=== PATIENT | male | born 1980 | race Caucasian/White ===

== ENCOUNTER 2017-07-12 11:45 | Observation (INO) ==
[2017-07-12] MEDS ORDERED: NS 1,000 ML IV ONE ×2 (12:12→16:01)
--- NOTE | 2017-07-12 12:17 | Emergency Department Report ---
Seizure HPI - General Chief Complaint: Seizure Stated Complaint: seizure Time Seen by Provider: 07/12/17 12:11 Source: patient, other (Employer; girlfriend) Mode of arrival: EMS Limitations: altered mental status (post ictal) - History of Present Illness HPI Narrative: Cuauhtemoc Nieves is a 37 y/o male who arrived via EMS for new onset seizure. According to the patient's girlfriend, who witnessed the event, his whole body became stiff, and he began making a sucking noise with his mouth for 2-3 minutes. When his body stiffened his arms were slightly flexed and his wrists were tightly flexed with his fingers curled up. Following this, he began to have vomiting and then started to profusely sweat. He started to snore and he was having a hard time breathing. He was having trouble clearing his secretions. She states that his face and his ears turned blue. He tried to get up to walk, but was unable to. Cuauhtemoc has a history of migraines, which have been evaluated by neurology and imaging studies, the last one about a year ago. He has a prescription for sumatriptan, which he rarely takes. Often, Excedrin Migraine will take care of his migraine. Occasionally he requires injections of Toradol 60 mg IM, which provides complete relief. Has migraines have decreased in frequency from about 1 per week to one per month. He has a history of occasional marijuana use. He drinks a max of 5 cups of coffee per day. His girlfriend states that he didn't sleep much the night before, only about 3-4 hours. He occasionally takes Zyrtec- D, and may be used taken about 4 last week. There has not been any recent illnesses, fevers or chills. He does not drink alcohol or use drugs. Girlfriend reports a brief seizure about a month ago, but no one thought he really had a seizure so he was never evaluated. MD complaint: seizure Onset (ago): minute(s) (2-3) Description of Episode: loss of consciousness Witnessed: yes - by bystander Trauma: Yes (fell face first off a horse yesterday, no LOC) Seizure History: none Place: home Possible Precipitating Event: head injury, lack of sleep, stress, medication Associated symptoms: confusion, shortness of breath, other (severe headache) Treatments prior to arrival: other (Zofran per EMS) - Related Data Home Medications Medication Instructions Recorded Confirmed No known Home medications [No home 07/12/17 07/12/17 meds] Allergies Allergy/AdvReac Type Severity Reaction Status Date / Time No Known Allergies Allergy Verified 07/12/17 12:19 Review of Systems Constitutional: Denies: fever, chills Eyes: Denies: eye pain, vision change ENT: Denies: ear pain, congestion Cardiovascular: Denies: chest pain, palpitations Respiratory: Reports: as per HPI. Denies: cough Gastrointestinal: Reports: as per HPI Genitourinary: Denies: urgency, dysuria Musculoskeletal: Denies: as per HPI Integumentary: Denies: rash, wounds Neurological: Reports: as per HPI Psychiatric: Denies: anxiety, depression Hematological/Lymphatic: Denies: easy bleeding, easy bruising Allergic/Immunologic: Reports: other (allergies) [facility] Patient Stated Medical History Migraine Yes Surgical History: Nasal surgery, ear tubes as a child Family History Updates: Negative for seizure disorder or brain abnormalities. - Social History Smoking status: Never smoker Substance use type: marijuana Substance last used: unknown Alcohol intake frequency: does not drink Current occupational status: employed Current occupation: [employer] Exam - Limitations Limitations: no limitations - General General appearance: in distress - Normal Exams: Head:: Normocephalic without trauma Eyes:: Pupils are PERRLA w/ EOMI ENMT:: No facial trauma Dental: No fractured (abrasion to the tip of his tongue with mild bleeding, which is well controlled) Neck:: Full range of motion, without adenopathy Chest/Respirations:: Clear all coker Cardiovascular:: Regular rate and rhythm (bradycardic, upper 40s to low 50s) Abdomen:: Bowel sounds positive, soft, non-tender, non-distended Lymphatic:: No lymphadenopathy Musculoskeletal:: No tenderness, or deformity noted Integumentary:: No rashes Neurological:: Patient is alert, cranial nerves (cranial nerves II through XII intact), motor/sensory/cerebellar, exams w/o gross deficits Course Course Narrative: Stat CT head without contrast was ordered. CBC, CMP, prolactin, UA, chest x-ray and urine drugs of abuse were ordered. Patient was given morphine 4 mg IV as well as 1 L of IV fluids. - Reevaluation(s) Reevaluation #1: Patient feeling better after Morphine. Resting in bed. Reevaluation #2: Pt had recurrent sz, lasting about 1 minute. He first started staring into space x 20 sec and was nonresponsive, followed by a full body seizure similar to the earlier one. His face turned cyanotic for a brief period and he was post ictal and diaphoretic. Of note, his right shoulder was stuck behind him and was difficult to reposition in front of him - may need imaging if he is unable to move it freely when he is alert. Time: 13:55 - Consultations Consultation #1: Dr. Velasquez Time: 14:10 (Admit, CCU) Consultation #2: Dr. Flores Time: 14:15 (Recommends MRI brain with and without contrast; agrees with Keppra - start 500 mg PO BID, first dose tonight. He will see Cuauhtemoc in the morning.) Vital Signs Temperature 98 F 07/12/17 11:45 Pulse Rate 56 L 07/12/17 11:45 Respiratory Rate 18 07/12/17 11:45 Blood Pressure 139/61 07/12/17 11:45 Pulse Oximetry 96 07/12/17 11:45 Temperature 98 F 07/12/17 11:45 Pulse Rate 55 L 07/12/17 12:35 Respiratory Rate 18 07/12/17 12:30 Blood Pressure 155/77 H 07/12/17 12:30 Pulse Oximetry 88 L 07/12/17 12:30 Seizure - MDM Narrative Medical decision making narrative: Between [id number] the patient had 2 seizures. IV Keppra and Ativan 0.5 mg IV were provided. He developed facial cyanosis following seizures and will require very close monitoring. - Differential Diagnosis Likely: new onset seizure - Lab Data Result diagrams: 07/12/17 12:14 07/12/17 12:14 Lab Results 07/12/17 07/12/17 07/12/17 Range/Units 12:14 12:14 13:37 WBC 6.4 (4.5-11.0) T/MM3 RBC 5.71 (4.50-5.90) M/MM3 Hgb 16.0 (13.5-17.5) GM/DL Hct 48.7 (41-53) % MCV 85.3 (80-100) UM3 MCH 28.0 (26-34) UUG MCHC 32.9 (31-37) GM/DL RDW Std Deviation 38.8 (36.9-50.2) FL Plt Count 206 (130-400) T/MM3 MPV 11.0 (9.4-12.4) UM3 Neutrophils % (Manual) 47.0 (33-66) % Lymphocytes % (Manual) 47.0 H (23-45) % Monocytes % (Manual) 4.0 (0-9.0) % Eosinophils % (Manual) 2.0 (0-4) % Neutrophils # (Manual) 3.0 (1.8-7.7) T/MM3 Lymphocytes # (Manual) 3.0 (1-4.8) T/MM3 Monocytes # (Manual) 0.3 (0-0.8) T/MM3 Eosinophils # (Manual) 0.1 (0-0.5) T/MM3 RBC Morph Comment Normal Turbidity < 20 (0-20) Sodium 144 (134-144) MEQ/L Potassium 4.3 (3.6-5) MEQ/L Chloride 106 (98-107) MEQ/L Carbon Dioxide 22 (22-30) MEQ/L Anion Gap 16 H (5-15) MEQ/L BUN 20.0 (9-20) MG/DL Creatinine 0.9 (0.8-1.5) MG/DL GFR Calculation 96 BUN/Creatinine Ratio 22 (6-26) RATIO Glucose 101 (75-110) MG/DL Calculated Osmolality 280 (261-280) MOSM/KG Calcium 9.6 (8.4-10.2) MG/DL Magnesium 2.1 (1.6-2.3) MG/DL Total Bilirubin 0.40 (0.20-1.30) MG/DL Icterus Index < 2 (0-7) AST 31 (17-59) U/L ALT 33 (21-72) U/L Alkaline Phosphatase 66 (38-126) U/L Total Protein 8.2 (6.3-8.2) G/DL Albumin 4.9 (3.5-5.0) G/DL Globulin 3.3 (2.4-3.6) G/DL Albumin/Globulin Ratio 1.5 (1.1-2.2) RATIO Prolactin 35.4 NG/ML Specimen Hemolysis 19 (0-25) Ur Collection Type Urine, clean catch Urine Color Yellow (YELLOW) Urine Clarity Clear Urine pH 5.0 (5.0-8.0) Ur Specific [place] >=1.030 H (1.015-1.025) Urine Protein Negative (NEGATIVE) Urine Glucose (UA) Negative (NEGATIVE) Urine Ketones Negative (NEGATIVE) Urine Occult Blood Negative (NEGATIVE) Urine Nitrate Negative (NEGATIVE) Urine Bilirubin Negative (NEGATIVE) Urine Urobilinogen 0.2 (NORMAL) EU/DL Ur Leukocyte Esterase Negative (NEGATIVE) Urinalysis Comment Microscopic not ind. Urine Opiates Screen ng/mL Ur Oxycodone Screen ng/mL Urine Methadone Screen ng/mL Ur Propoxyphene Screen ng/mL Ur Barbiturates Screen ng/mL U Tricyclic Antidepress ng/mL Ur Phencyclidine Scrn ng/mL Ur Amphetamines Screen ng/mL U Methamphetamines Scrn ng/mL U Benzodiazepines Scrn ng/mL Urine Cocaine Screen ng/mL U Cannabinoids Screen ng/mL Ur Drug Screen Confirm 07/12/17 07/12/17 Range/Units 13:37 13:37 WBC (4.5-11.0) T/MM3 RBC (4.50-5.90) M/MM3 Hgb (13.5-17.5) GM/DL Hct (41-53) % MCV (80-100) UM3 MCH (26-34) UUG MCHC (31-37) GM/DL RDW Std Deviation (36.9-50.2) FL Plt Count (130-400) T/MM3 MPV (9.4-12.4) UM3 Neutrophils % (Manual) (33-66) % Lymphocytes % (Manual) (23-45) % Monocytes % (Manual) (0-9.0) % Eosinophils % (Manual) (0-4) % Neutrophils # (Manual) (1.8-7.7) T/MM3 Lymphocytes # (Manual) (1-4.8) T/MM3 Monocytes # (Manual) (0-0.8) T/MM3 Eosinophils # (Manual) (0-0.5) T/MM3 RBC Morph Comment Turbidity (0-20) Sodium (134-144) MEQ/L Potassium (3.6-5) MEQ/L Chloride (98-107) MEQ/L Carbon Dioxide (22-30) MEQ/L Anion Gap (5-15) MEQ/L BUN (9-20) MG/DL Creatinine (0.8-1.5) MG/DL GFR Calculation BUN/Creatinine Ratio (6-26) RATIO Glucose (75-110) MG/DL Calculated Osmolality (261-280) MOSM/KG Calcium (8.4-10.2) MG/DL Magnesium (1.6-2.3) MG/DL Total Bilirubin (0.20-1.30) MG/DL Icterus Index (0-7) AST (17-59) U/L ALT (21-72) U/L Alkaline Phosphatase (38-126) U/L Total Protein (6.3-8.2) G/DL Albumin (3.5-5.0) G/DL Globulin (2.4-3.6) G/DL Albumin/Globulin Ratio (1.1-2.2) RATIO Prolactin NG/ML Specimen Hemolysis (0-25) Ur Collection Type Urine Color (YELLOW) Urine Clarity Urine pH (5.0-8.0) Ur Specific [place] (1.015-1.025) Urine Protein (NEGATIVE) Urine Glucose (UA) (NEGATIVE) Urine Ketones (NEGATIVE) Urine Occult Blood (NEGATIVE) Urine Nitrate (NEGATIVE) Urine Bilirubin (NEGATIVE) Urine Urobilinogen (NORMAL) EU/DL Ur Leukocyte Esterase (NEGATIVE) Urinalysis Comment Urine Opiates Screen Positive ng/mL Ur Oxycodone Screen Negative ng/mL Urine Methadone Screen Negative ng/mL Ur Propoxyphene Screen Negative ng/mL Ur Barbiturates Screen Negative ng/mL U Tricyclic Antidepress Negative ng/mL Ur Phencyclidine Scrn Negative ng/mL Ur Amphetamines Screen Negative ng/mL U Methamphetamines Scrn Negative ng/mL U Benzodiazepines Scrn Negative ng/mL Urine Cocaine Screen Negative ng/mL U Cannabinoids Screen Positive ng/mL Ur Drug Screen Confirm Sent out - Radiology Data MDM Radiology Attestation Statement: I reviewed the patient's radiology results. HEAD CT: Moderately prominent retrocerebellar CSF space noted. The ventricles are of normal size, shape, and configuration for the patient's age. There is no evidence of acute intracranial hemorrhage, midline displacement, or mass effect. The CT attenuation of the brain parenchyma is normal within the cerebellum, brain stem, and cerebral hemispheres. The tympanic cavities and mastoid air cells are free of appreciable disease. There are no definite fractures of the skull base, calvarium, or visualized portion of the midface. IMPRESSION: No CT evidence of acute intracranial abnormality. CXR: No abnormality. - EKG Data EKG #1 EKG attestation: Yes: I reviewed and interpreted this EKG. EKG results narrative: Sinus bradycardia with slight early repolarization. Mild intraventricular conduction delay. No ST segment elevation or depression. Good R-wave progression. Critical Care Time Critical Care Time: Yes Total Critical Care Time: 30 Attestation: Pt with active seizure disorder, requiring emergent IV Keppra and Ativan, and close supportive care. Disposition Clinical Impression: New onset seizure [place] [facility] [place] [facility] [place] Care Condition: Stable Prescriptions: No Action No known Home medications [No home meds] 0 #0 [facility] [place] Referrals: Soto Winkler [Family Provider] - Time of Disposition: 14:22 - Seen By: midlevel and physician
[2017-07-12] MEDS ORDERED: MORPHINE SULFATE 4mg INJECTION IVP ONE (12:41)
--- NOTE | 2017-07-12 12:56 | CT Scan Report ---
Indication: new onset sz PROCEDURE: CT head/brain wo con: Encounter: Initial Comparison: None Technique: Axial CT images through the head were performed without contrast. Iterative Reconstruction dose reducing technique was utilized. FINDINGS: Moderately prominent retrocerebellar CSF space noted. The ventricles are of normal size, shape, and configuration for the patient's age. There is no evidence of acute intracranial hemorrhage, midline displacement, or mass effect. The CT attenuation of the brain parenchyma is normal within the cerebellum, brain stem, and cerebral hemispheres. The tympanic cavities and mastoid air cells are free of appreciable disease. There are no definite fractures of the skull base, calvarium, or visualized portion of the midface. IMPRESSION: No CT evidence of acute intracranial abnormality. .
--- NOTE | 2017-07-12 12:57 | XRay Report ---
Indication: dyspnea; difficulty breathing with sz PROCEDURE: XR chest 1V: Encounter: Initial Comparison: None FINDINGS: The lungs are clear. There is no abnormal airspace opacity, pleural effusion or pneumothorax identified. The heart size, pulmonary vasculature and mediastinum are within normal limits. No significant skeletal abnormality is seen. IMPRESSION: No acute cardiopulmonary abnormality. .
[2017-07-12] MEDS ORDERED: KETOROLAC 30 MG/ML INJECTION IVP ONE (12:58)
[2017-07-12] MEDS ORDERED: LEVETIRACETAM INJ 500 MG in NS 100 ML IV ONE (13:57)
[2017-07-12] MEDS ORDERED: ONDANSETRON 4 MG/2 ML INJECTION IVP ONE (15:05)
[2017-07-12 15:47] VITALS: BMI 26.9
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
[2017-07-12] MEDS ORDERED: ONDANSETRON 4 MG/2 ML INJECTION IVP PRN (16:02)
[2017-07-12] MEDS ORDERED: SALINE FLUSH 10ml SYRINGE ONE (16:30)
[2017-07-12] MEDS: NICOTINE 21 MG PATCH TD SCH (17:01)
[2017-07-12] MEDS ORDERED: FALL RISK - PHARMACY CONSULT MC ONE (17:17)
[2017-07-12] MEDS: LEVETIRACETAM 500 MG TABLET PO SCH (21:17)
[2017-07-13] MEDS ORDERED: SALINE FLUSH 10ml SYRINGE ONE (07:17)
--- NOTE | 2017-07-13 08:55 | Magnetic Resonance Report ---
Indication: new onset seizure PROCEDURE: MR head/brain wo/w con: Encounter: Initial Comparisons: Brain MRI dated March 25, [address] dated July 12, 2017 Technique: Multiplanar, multisequence, MR imaging of the head with and without contrast was acquired. Contrast: 17 mL of ProHance FINDINGS: Limited exam due to motion artifact. Prominent retrocerebellar CSF space, a normal anatomic variant. The ventricles are of normal size, shape, and contour for the patient's age. The brain stem, cerebellum, and cerebral hemispheres have a normal morphologic appearance as well as MR signal intensity on all pulse sequences. Following intravenous administration of contrast, no areas of abnormal enhancement are evident. There are no areas of restricted diffusion to suggest an acute infarct. There is no evidence of an intracranial mass lesion, intracranial hemorrhage, or hydrocephalus. The visualized portions of the orbits, calvarium, paranasal sinuses, and skull base demonstrate no significant abnormality. IMPRESSION: Motion artifact. No acute intracranial abnormality. Essentially negative exam. .
[2017-07-13] MEDS: LEVETIRACETAM 500 MG TABLET PO SCH (09:11)
[2017-07-13] MEDS: NICOTINE 21 MG PATCH TD SCH (09:12)
[2017-07-13] MEDS: NICOTINE PATCH REMOVAL TD SCH ×2 (09:13)
[2017-07-13 09:25] VITALS: BP 146/95; PULSE 63; RESP 21; TEMP 98.5; O2SAT 99
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
== END 2017-07-13 10:40 | disposition home or self-care (01) ==
LOC: CCU 11:45 → ED 11:45 → CCU 15:40
PROVIDERS: ADMIT Hospitalist; ATTEND Hospitalist